=== PATIENT | male | born 1970 | race Caucasian/White ===

== ENCOUNTER 2019-08-28 09:01 | Emergency (ER) | payer SELFPAY ==
[~2019-08-28] VITALS: Ht 177.8 cm; Wt 78.6 kg
[2019-08-28 09:04] VITALS: Ht 177.8 cm; Wt 78.6 kg
[2019-08-28 10:55] VITALS: BP 126/71
[2019-08-28] MEDS ORDERED: NEURONTIN800 MG PO (11:01)
[2019-08-28] MEDS ORDERED: PREDNISONE20 MG PO (11:01)
[2019-08-28] MEDS ORDERED: TYLENOL #4 W/CO1 TAB PO (11:01)
== END 2019-08-28 12:03 | disposition home or self-care (01) ==
LOC: D.ER 09:01
DX: M54.5 Low back pain (principal)